=== PATIENT | female | born 1940 | race Caucasian/White ===

== ENCOUNTER → 2019-04-22 | Day surgery (SDC) | payer OTHER ==
[~2019-04-22] MED LIST: ALEVE220 M1 PO; ANASTROZOLE1 MG; ASPIR 8181 MG; DONEPEZIL HCL OD5 MG; DUI500 PO; SYNTHROID50 MCG; TUMS200 MG; ULTRACET PO
== END | disposition home or self-care (01) ==
LOC: CIR.AMB 08:27
DX: S52.571A Other intraarticular fracture of lower end of right radius, initial encounter for closed fracture (principal)
CPT/HCPCS: 25609; 20902; C1776